=== PATIENT | female | born 2005 | race Two or more races ===

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

== ENCOUNTER 2023-10-25 01:03 | Emergency (ER) | payer MEDICAID ==
[~2023-10-25] VITALS: Ht 160 cm; Wt 89.0 kg
[2023-10-25 03:35] VITALS: BP 141/95; PULSE 99; RESP 16; TEMP 98; O2SAT 97
[2023-10-25] MEDS ORDERED: CLOT1CRE56 TOP (03:59)
[2023-10-25] MEDS ORDERED: AMOX500T3 PO (03:59)
== END 2023-10-25 04:04 | disposition home or self-care (01) ==
LOC: ER 01:03
DX: J02.0 Streptococcal pharyngitis (principal); B35.6 Tinea cruris